=== PATIENT | male | born 1940 | race Caucasian/White ===

== ENCOUNTER 2017-08-22 15:52 | Inpatient (IN) | payer OTHER, MEDICARE ==
[~2017-08-22] VITALS: Ht 182.9 cm; Wt 117.9 kg
[2017-08-22 15:58] VITALS: BP_SYST 123
[2017-08-22] MEDS ORDERED: AMPICILLIN SODIUM/SULBACTAM NA 3 GM in NS 100 ML IV ONE (16:15)
[2017-08-22] MEDS ORDERED: ASPIRIN 81 MG TAB.CHEW PO ONE (16:15)
[2017-08-22] MEDS ORDERED: NACL 0.9% 1,000 ML IV ONE (16:30)
[2017-08-22 16:46] LABS: BASOPHILS % (AUTO) 0.6 % (0.0-2.0); EOSINOPHILS # (AUTO) 0.2 K/uL (0.0-0.4); EOSINOPHILS % (AUTO) 3.7 % (0.0-4.0); HEMATOCRIT 32.6 % (36-54); HEMOGLOBIN 11.2 g/dL (14.0-18.0); LYMPHOCYTES # (AUTO) 1.5 K/uL (1.0-5.5); LYMPHOCYTES % (AUTO) 25.7 % (20.5-51.5); MEAN CORPUSCULAR HEMOGLOBIN 35 pg (27-31); MEAN CORPUSCULAR HGB CONC 34 % (32-36); MEAN CORPUSCULAR VOLUME 101 fL (79.0-98.0); MONOCYTES # (AUTO) 0.6 K/uL (0.0-1.0); MONOCYTES % (AUTO) 9.4 % (1.7-9.3); NEUTROPHILS # (AUTO) 3.6 K/uL (1.8-7.7); NEUTROPHILS % (AUTO) 60.6 % (40.0-70.0); RED BLOOD CELL COUNT(AUTO) 3.24 MIL/uL (4.2-6.2); WHITE BLOOD COUNT (AUTO) 5.9 K/uL (4.8-10.8)
[2017-08-22 16:51] LABS: ANION GAP 5 (5-15); CHLORIDE 99 mmol/L (98-107); CREATININE 1.55 mg/dL (0.55-1.30); GLUCOSE 110 mg/dL (70-99); POTASSIUM 4.3 mmol/L (3.5-5.1); SODIUM SERUM 130 mmol/L (136-145); UREA NITROGEN, BLOOD 21 mg/dL (8-21)
[2017-08-22 16:53] LABS: INR 1.4 (0.80-1.20); PROTHROMBIN TIME 13.8 SECS (9.5-12.5)
[2017-08-22 16:56] LABS: ALANINE AMINOTRANSFERASE 23 U/L (12-78); ALBUMIN 2.1 g/dL (3.4-4.8); ASPARTATE AMINOTRANSFERASE 45 U/L (10-37); TOTAL BILIRUBIN 4.8 mg/dL (0.0-1.0)
[2017-08-22 17:00] LABS: PLATELET COUNT (AUTO) 112 K/uL (130-430)
[2017-08-22] MEDS ORDERED: AMPICILLIN SODIUM/SULBACTAM NA 3 GM VIAL ONE ×2 (17:07→17:42)
[2017-08-22] MEDS ORDERED: VITA100014 PO (17:59)
[2017-08-22] MEDS ORDERED: GABA-529 PO (17:59)
[2017-08-22] MEDS ORDERED: PROP10TA10 PO (17:59)
[2017-08-22] MEDS ORDERED: SPIR25TA4 PO (17:59)
[2017-08-22] MEDS ORDERED: URSO500T9 PO (17:59)
[2017-08-22] MEDS ORDERED: PRO40 PO (17:59)
[2017-08-22] MEDS ORDERED: DONE5TAB3 PO (17:59)
[2017-08-22] MEDS ORDERED: RIFA550T5 PO (17:59)
[2017-08-22] MEDS ORDERED: MULT-1198 PO (17:59)
[2017-08-22] MEDS ORDERED: LACT10SO66 PO (17:59)
[2017-08-22] MEDS ORDERED: DOXY100T2 PO (17:59)
[2017-08-22] MEDS ORDERED: FURO-149 PO (17:59)
[2017-08-22 18:22] VITALS: BP_SYST 110
[2017-08-22 20:00] VITALS: BP_SYST 112
[2017-08-22] MEDS ORDERED: DEXTROSE 50% JECT 50 ML DISP.SYRIN IVP PRN (20:00)
[2017-08-22] MEDS: DONEPEZIL HCL 5 MG TABLET (ARICEPT) PO SCH (21:11)
[2017-08-22] MEDS: LACTULOSE 20 GM/30 ML UDC PO SCH (21:12)
[2017-08-22] MEDS: DOXYCYCLINE HYCLATE 100 MG CAPSULE PO SCH (21:12)
[2017-08-22] MEDS: RIFAXIMIN 550 MG TABLET PO SCH (21:12)
[2017-08-22 23:41] LABS: BILIRUBIN,URINE 1+ (NEGATIVE); BLOOD, URINE 1+ (NEGATIVE); CLARITY/URINE CLEAR (CLEAR); COLOR,URINE YELLOW (YELLOW); GLUCOSE,URINE NEGATIVE (NEGATIVE); KETONES,URINE NEGATIVE (NEGATIVE); LEUKOCYTE ESTERASE ,URINE TRACE (NEGATIVE); NITRITE, URINE NEGATIVE (NEGATIVE); PROTEIN URINE NEGATIVE (NEGATIVE); UROBILINOGEN,URINE 0.2 (0.2-1.0)
[2017-08-22] MEDS ORDERED: AMPICILLIN SODIUM/SULBACTAM NA 1.5 GM VIAL ONE (23:52)
[2017-08-23] VITALS (7 sets, daily range): BP systolic 100–125
[2017-08-23 00:02] LABS: BACTERIA,URINE FEW /HPF (None Seen); CALCIUM OXALATE CRYSTALS,UR 0-10 /HPF (None Seen); RBC,URINE 0-3 /HPF (0-3)
[2017-08-23 00:03] LABS: MUCUS,URINE None Seen /LPF (None Seen)
[2017-08-23] MEDS: AMPICILLIN SODIUM/SULBACTAM NA 1.5 GM in NS 50 ML IV SCH ×4 (00:15→17:26)
[2017-08-23 06:31] LABS: BASOPHILS % (AUTO) 0.6 % (0.0-2.0); EOSINOPHILS # (AUTO) 0.2 K/uL (0.0-0.4); EOSINOPHILS % (AUTO) 4.5 % (0.0-4.0); HEMATOCRIT 30.1 % (36-54); HEMOGLOBIN 10.1 g/dL (14.0-18.0); LYMPHOCYTES # (AUTO) 1.4 K/uL (1.0-5.5); LYMPHOCYTES % (AUTO) 29.1 % (20.5-51.5); MEAN CORPUSCULAR HEMOGLOBIN 34 pg (27-31); MEAN CORPUSCULAR HGB CONC 34 % (32-36); MEAN CORPUSCULAR VOLUME 101 fL (79.0-98.0); MONOCYTES # (AUTO) 0.4 K/uL (0.0-1.0); MONOCYTES % (AUTO) 9.4 % (1.7-9.3); NEUTROPHILS # (AUTO) 2.7 K/uL (1.8-7.7); NEUTROPHILS % (AUTO) 56.4 % (40.0-70.0); PLATELET COUNT (AUTO) 74 K/uL (130-430); RED BLOOD CELL COUNT(AUTO) 2.97 MIL/uL (4.2-6.2); RED CELL DISTRIBUTION WIDTH 17.1 % (9.0-15.0); WHITE BLOOD COUNT (AUTO) 4.7 K/uL (4.8-10.8)
[2017-08-23 06:36] LABS: ALANINE AMINOTRANSFERASE 20 U/L (12-78); ANION GAP 5 (5-15); ASPARTATE AMINOTRANSFERASE 41 U/L (10-37); CALCIUM 8.8 mg/dL (8.4-11.0); CHLORIDE 100 mmol/L (98-107); CREATININE 1.53 mg/dL (0.55-1.30); GLUCOSE 112 mg/dL (70-99); POTASSIUM 4.5 mmol/L (3.5-5.1); SODIUM SERUM 133 mmol/L (136-145); TOTAL BILIRUBIN 4.1 mg/dL (0.0-1.0); UREA NITROGEN, BLOOD 20 mg/dL (8-21)
[2017-08-23] MEDS: RIFAXIMIN 550 MG TABLET PO SCH ×2 (08:48→20:58)
[2017-08-23] MEDS: GABAPENTIN 100 MG CAPSULE PO SCH (08:48)
[2017-08-23] MEDS: FUROSEMIDE 40 MG TABLET PO SCH (08:48)
[2017-08-23] MEDS: LACTULOSE 20 GM/30 ML UDC PO SCH ×2 (08:48→20:58)
[2017-08-23] MEDS: DOXYCYCLINE HYCLATE 100 MG CAPSULE PO SCH ×2 (08:48→20:58)
[2017-08-23] MEDS: PANTOPRAZOLE SODIUM 40 MG TAB PO SCH (08:49)
[2017-08-23] MEDS: PROPRANOLOL HCL 10 MG TABLET (INDERAL) PO SCH (08:49)
[2017-08-23] MEDS: SPIRONOLACTONE 25 MG TABLET (ALDACTONE) PO SCH (08:49)
[2017-08-23] MEDS ORDERED: *CUBICIN 4 MG/KG Q48H/PHARMACY XX PRN (11:30)
[2017-08-23] MEDS: INSULIN REGULAR, HUMAN 100 UNITS/ML, 10 ML VIAL (novoLIN R) SUBCUT PRN ×2 (11:33→17:04)
[2017-08-23] MEDS: DAPTOmycin 400 MG in NS 50 ML IV SCH (15:37)
[2017-08-23] MEDS: DONEPEZIL HCL 5 MG TABLET (ARICEPT) PO SCH (20:58)
[2017-08-24] VITALS (7 sets, daily range): BP systolic 105–128
[2017-08-24] MEDS: AMPICILLIN SODIUM/SULBACTAM NA 1.5 GM in NS 50 ML IV SCH ×4 (00:06→19:00)
[2017-08-24 06:09] LABS: HEPATITIS B SURFACE AG Negative (Negative); HEPATITIS C VIRUS AB 0.1 s/co ratio (0.0-0.9)
[2017-08-24 08:06] LABS: AFP, TUMOR MARKER 1.4 ng/mL (0.0-8.3)
[2017-08-24] MEDS: GABAPENTIN 100 MG CAPSULE PO SCH (08:15)
[2017-08-24] MEDS: LACTULOSE 20 GM/30 ML UDC PO SCH ×2 (08:15→21:10)
[2017-08-24] MEDS: SPIRONOLACTONE 25 MG TABLET (ALDACTONE) PO SCH (08:16)
[2017-08-24] MEDS: PROPRANOLOL HCL 10 MG TABLET (INDERAL) PO SCH (08:17)
[2017-08-24] MEDS: PANTOPRAZOLE SODIUM 40 MG TAB PO SCH (08:17)
[2017-08-24] MEDS: DOXYCYCLINE HYCLATE 100 MG CAPSULE PO SCH ×2 (08:17→21:10)
[2017-08-24] MEDS: FUROSEMIDE 40 MG TABLET PO SCH (08:17)
[2017-08-24] MEDS: RIFAXIMIN 550 MG TABLET PO SCH ×2 (08:17→21:10)
[2017-08-24] MEDS ORDERED: IPRATROPIUM BROM 0.5 MG/2.5 ML VIAL.NEB (ATROVENT) INH PRN (16:00)
[2017-08-24] MEDS ORDERED: ALBUTEROL SULFATE 0.083% 2.5 MG/3 ML VIAL.NEB INH PRN (16:00)
[2017-08-24] MEDS: ALBUTEROL SULFATE 0.083% 2.5 MG/3 ML VIAL.NEB INH SCH ×2 (19:51→23:00)
[2017-08-24] MEDS: IPRATROPIUM BROM 0.5 MG/2.5 ML VIAL.NEB (ATROVENT) INH SCH ×2 (19:52→23:00)
[2017-08-24] MEDS: DONEPEZIL HCL 5 MG TABLET (ARICEPT) PO SCH (21:10)
[2017-08-24] MEDS: ZOLPIDEM TARTRATE 5 MG TABLET PO PRN (21:10)
[2017-08-25] VITALS: BP_SYST 110
[2017-08-25] MEDS: AMPICILLIN SODIUM/SULBACTAM NA 1.5 GM in NS 50 ML IV SCH ×5 (00:46→23:24)
[2017-08-25 04:00] VITALS: BP_SYST 109
[2017-08-25 06:39] LABS: BASOPHILS % (AUTO) 0.6 % (0.0-2.0); EOSINOPHILS # (AUTO) 0.3 K/uL (0.0-0.4); EOSINOPHILS % (AUTO) 5.3 % (0.0-4.0); HEMATOCRIT 31.9 % (36-54); HEMOGLOBIN 10.7 g/dL (14.0-18.0); INR 1.3 (0.80-1.20); LYMPHOCYTES # (AUTO) 1.2 K/uL (1.0-5.5); LYMPHOCYTES % (AUTO) 25.5 % (20.5-51.5); MEAN CORPUSCULAR HEMOGLOBIN 34 pg (27-31); MEAN CORPUSCULAR HGB CONC 34 % (32-36); MEAN CORPUSCULAR VOLUME 102 fL (79.0-98.0); MONOCYTES # (AUTO) 0.4 K/uL (0.0-1.0); MONOCYTES % (AUTO) 8.2 % (1.7-9.3); NEUTROPHILS # (AUTO) 2.9 K/uL (1.8-7.7); NEUTROPHILS % (AUTO) 60.4 % (40.0-70.0); PLATELET COUNT (AUTO) 73 K/uL (130-430); PROTHROMBIN TIME 13.2 SECS (9.5-12.5); RED BLOOD CELL COUNT(AUTO) 3.12 MIL/uL (4.2-6.2); RED CELL DISTRIBUTION WIDTH 17.4 % (9.0-15.0); WHITE BLOOD COUNT (AUTO) 4.8 K/uL (4.8-10.8)
[2017-08-25] MEDS: IPRATROPIUM BROM 0.5 MG/2.5 ML VIAL.NEB (ATROVENT) INH SCH ×5 (07:30→23:00)
[2017-08-25] MEDS: ALBUTEROL SULFATE 0.083% 2.5 MG/3 ML VIAL.NEB INH SCH ×5 (07:30→23:00)
[2017-08-25 08:00] VITALS: BP_SYST 114
[2017-08-25] MEDS: RIFAXIMIN 550 MG TABLET PO SCH ×2 (08:50→21:30)
[2017-08-25] MEDS: FUROSEMIDE 40 MG TABLET PO SCH (08:50)
[2017-08-25] MEDS: SPIRONOLACTONE 25 MG TABLET (ALDACTONE) PO SCH (08:51)
[2017-08-25] MEDS: PANTOPRAZOLE SODIUM 40 MG TAB PO SCH (08:53)
[2017-08-25] MEDS: LACTULOSE 20 GM/30 ML UDC PO SCH ×2 (08:53→21:31)
[2017-08-25] MEDS: PROPRANOLOL HCL 10 MG TABLET (INDERAL) PO SCH (08:53)
[2017-08-25] MEDS: GABAPENTIN 100 MG CAPSULE PO SCH (08:53)
[2017-08-25] MEDS: DOXYCYCLINE HYCLATE 100 MG CAPSULE PO SCH ×2 (08:53→21:30)
[2017-08-25 12:02] VITALS: BP_SYST 116
[2017-08-25] MEDS: DAPTOmycin 400 MG in NS 50 ML IV SCH (15:27)
[2017-08-25 16:22] VITALS: BP_SYST 121
[2017-08-25] MEDS: ZOLPIDEM TARTRATE 5 MG TABLET PO PRN (21:30)
[2017-08-25] MEDS: DONEPEZIL HCL 5 MG TABLET (ARICEPT) PO SCH (21:30)
[2017-08-26 00:07] VITALS: BP_SYST 117
[2017-08-26] MEDS: ALBUTEROL SULFATE 0.083% 2.5 MG/3 ML VIAL.NEB INH SCH ×6 (03:00→23:22)
[2017-08-26 04:01] VITALS: BP_SYST 117
[2017-08-26] MEDS: IPRATROPIUM BROM 0.5 MG/2.5 ML VIAL.NEB (ATROVENT) INH SCH ×6 (04:29→23:22)
[2017-08-26] MEDS: AMPICILLIN SODIUM/SULBACTAM NA 1.5 GM in NS 50 ML IV SCH ×4 (05:18→23:25)
[2017-08-26 07:25] LABS: ALANINE AMINOTRANSFERASE 26 U/L (12-78); ANION GAP 4 (5-15); ASPARTATE AMINOTRANSFERASE 48 U/L (10-37); CHLORIDE 102 mmol/L (98-107); CREATININE 1.24 mg/dL (0.55-1.30); GLUCOSE 103 mg/dL (70-99); POTASSIUM 4.4 mmol/L (3.5-5.1); SODIUM SERUM 135 mmol/L (136-145); TOTAL BILIRUBIN 4.2 mg/dL (0.0-1.0); UREA NITROGEN, BLOOD 16 mg/dL (8-21)
[2017-08-26 08:11] VITALS: BP_SYST 110
[2017-08-26] MEDS: PROPRANOLOL HCL 10 MG TABLET (INDERAL) PO SCH (09:13)
[2017-08-26] MEDS: DOXYCYCLINE HYCLATE 100 MG CAPSULE PO SCH ×2 (09:13→21:35)
[2017-08-26] MEDS: PANTOPRAZOLE SODIUM 40 MG TAB PO SCH (09:13)
[2017-08-26] MEDS: GABAPENTIN 100 MG CAPSULE PO SCH (09:13)
[2017-08-26] MEDS: FUROSEMIDE 40 MG TABLET PO SCH (09:13)
[2017-08-26] MEDS: RIFAXIMIN 550 MG TABLET PO SCH ×2 (09:13→21:35)
[2017-08-26] MEDS: LACTULOSE 20 GM/30 ML UDC PO SCH ×2 (09:14→21:35)
[2017-08-26] MEDS: SPIRONOLACTONE 25 MG TABLET (ALDACTONE) PO SCH (09:14)
[2017-08-26 12:33] VITALS: BP_SYST 122
[2017-08-26 17:05] VITALS: BP_SYST 123
[2017-08-26 20:00] VITALS: BP_SYST 128
[2017-08-26] MEDS: ZOLPIDEM TARTRATE 5 MG TABLET PO PRN (21:35)
[2017-08-26] MEDS: DONEPEZIL HCL 5 MG TABLET (ARICEPT) PO SCH (21:35)
[2017-08-27 00:31] VITALS: BP_SYST 138
[2017-08-27 04:49] VITALS: BP_SYST 136
[2017-08-27] MEDS: AMPICILLIN SODIUM/SULBACTAM NA 1.5 GM in NS 50 ML IV SCH (06:00)
[2017-08-27] MEDS: ALBUTEROL SULFATE 0.083% 2.5 MG/3 ML VIAL.NEB INH SCH (07:59)
[2017-08-27] MEDS: IPRATROPIUM BROM 0.5 MG/2.5 ML VIAL.NEB (ATROVENT) INH SCH (07:59)
[2017-08-27 09:13] VITALS: BP_SYST 129
[2017-08-27] MEDS: PANTOPRAZOLE SODIUM 40 MG TAB PO SCH (09:15)
[2017-08-27] MEDS: RIFAXIMIN 550 MG TABLET PO SCH (09:15)
[2017-08-27] MEDS: PROPRANOLOL HCL 10 MG TABLET (INDERAL) PO SCH (09:15)
[2017-08-27] MEDS: DOXYCYCLINE HYCLATE 100 MG CAPSULE PO SCH (09:15)
[2017-08-27] MEDS: LACTULOSE 20 GM/30 ML UDC PO SCH (09:16)
[2017-08-27] MEDS: GABAPENTIN 100 MG CAPSULE PO SCH (09:16)
[2017-08-27] MEDS: FUROSEMIDE 40 MG TABLET PO SCH (09:16)
[2017-08-27] MEDS: SPIRONOLACTONE 25 MG TABLET (ALDACTONE) PO SCH (09:16)
[2017-08-27] MEDS ORDERED: DOXY100T2 PO (10:46)
[2017-08-27 11:15] VITALS: BP_SYST 129
[2017-08-27 11:35] VITALS: BP_SYST 121
== END 2017-08-27 11:44 | disposition home or self-care (01) | DRG 441 ==
LOC: SED 15:52 → SMU 17:34
PROVIDERS: ADMIT Internal Medicine Hospice and Palliative Medicine; ATTEND Internal Medicine Hospice and Palliative Medicine
PROC: 5A09457 Assistance with Respiratory Ventilation, 24-96 Consecutive Hours, Continuous Positive Airway Pressure (ICD-10-PCS; principal; 2017-08-22)
DX: K72.90 Hepatic failure, unspecified without coma (principal); J18.9 Pneumonia, unspecified organism; N17.9 Acute kidney failure, unspecified; L03.116 Cellulitis of left lower limb; D68.9 Coagulation defect, unspecified; D69.6 Thrombocytopenia, unspecified; E11.22 Type 2 diabetes mellitus with diabetic chronic kidney disease; R18.8 Other ascites; E11.9 Type 2 diabetes mellitus without complications; F03.90 Unspecified dementia, unspecified severity, without behavioral disturbance, psychotic disturbance, mood disturbance, and anxiety; K74.60 Unspecified cirrhosis of liver; E66.9 Obesity, unspecified; B18.2 Chronic viral hepatitis C; N18.9 Chronic kidney disease, unspecified; I12.9 Hypertensive chronic kidney disease with stage 1 through stage 4 chronic kidney disease, or unspecified chronic kidney disease; I89.0 Lymphedema, not elsewhere classified; Z96.652 Presence of left artificial knee joint; Z79.899 Other long term (current) drug therapy; Z68.35 Body mass index [BMI] 35.0-35.9, adult; Z90.49 Acquired absence of other specified parts of digestive tract
CPT/HCPCS: 36415; 71010; 76705; 80053; 81000-TC; 82105; 82140-TC; 82550-TC; 82962; 83036; 83605; 84484; 85025; 85610-TC; 85730-TC; 86803; 87040-TC; 87340; 93005; 94640; 94660; 94760; 96365; 97110-GP; 97116-GP; 97530-GP; 99285; J0295; J0878; J1815; J7030; J7040; J7050

== ENCOUNTER 2017-09-25 15:19 | Emergency (ER) | payer OTHER, MEDICARE ==
[~2017-09-25] VITALS: Ht 182.9 cm; Wt 121.1 kg
[~2017-09-25 15:19] MED LIST: DONE5TAB3 PO; DOXY100T2 PO; FURO-149 PO; GABA-529 PO; LACT10SO66 PO; MULT-1198 PO; PRO40 PO; PROP10TA10 PO; RIFA550T5 PO; SPIR25TA4 PO; URSO500T9 PO; VITA100014 PO
[2017-09-25 16:09] VITALS: BP_SYST 122
--- NOTE | 2017-09-25 19:38 | NUR ---
Patient to ER bed 5 to gown for evaluation. Side rails up. Report given by MATITE Villarreal to MATTIE Osullivan.
--- NOTE | 2017-09-25 19:40 | NUR ---
Patient AAOx4, ambulatory. Patient states having a main complaint of bilateral foot swelling for "a while" prior to ER visit; patient states he "saw his PMD and was prescribed Keflex" and has not had relief. Patient denies pain to bilateral feet, no signs of redness noted to bilateral feet. Patient denies any other complaints.
--- NOTE | 2017-09-25 19:52 | NUR ---
ER Dr. Bashir at bedside examining patient.
[2017-09-25] MEDS ORDERED: cefTRIAXone 1 GM VIAL IM ONE (20:30)
[2017-09-25] MEDS ORDERED: LIDOCAINE 1% 10 MG/ML, 20 ML MDV INJ ONE (20:30)
[2017-09-25] MEDS ORDERED: LIDOCAINE 1%, 20 ML MDV 20 ML ONE (20:30)
[2017-09-25 20:39] VITALS: BP_SYST 134
--- NOTE | 2017-09-25 20:39 | NUR ---
Patient given written and verbal discharge instructions and verbalizes understanding. ER MD discussed with patient the results and treatment provided. Patient in stable condition. ID arm band removed. Rx of keflex and bactrim given. Patient educated on pain management and to follow up with PMD. Pain Scale 0/10. Opportunity for questions provided and answered.
== END 2017-09-25 20:39 | disposition home or self-care (01) ==
LOC: SED 15:19
DX: L03.116 Cellulitis of left lower limb (principal); L03.115 Cellulitis of right lower limb; E11.9 Type 2 diabetes mellitus without complications; Z79.899 Other long term (current) drug therapy; Z96.659 Presence of unspecified artificial knee joint
CPT/HCPCS: 96372; 99283; J0696; J2001

== ENCOUNTER 2018-07-26 19:24 | Inpatient (IN) | payer OTHER, MEDICARE ==
[~2018-07-26] VITALS: Ht 182.9 cm; Wt 121.6 kg
[~2018-07-26 19:24] MED LIST changes: -SPIR25TA4 PO; +SPIR25TA6 PO
[2018-07-26 19:42] VITALS: BP_SYST 105
[2018-07-26] MEDS ORDERED: fentaNYL CITRATE/PF 100 MCG/2 ML AMP IVP ONE (20:15)
[2018-07-26 20:27] LABS: EOSINOPHILS # (AUTO) 0.3 K/uL (0.0-0.4); MEAN CORPUSCULAR HEMOGLOBIN 36 pg (27-31); MEAN CORPUSCULAR HGB CONC 34 % (32-36); MEAN CORPUSCULAR VOLUME 106 fL (79.0-98.0); MONOCYTES # (AUTO) 0.5 K/uL (0.0-1.0)
[2018-07-26 20:30] LABS: BASOPHILS % (AUTO) 0.7 % (0.0-2.0); EOSINOPHILS % (AUTO) 6.7 % (0.0-4.0); HEMATOCRIT 33.8 % (36-54); HEMOGLOBIN 11.4 g/dL (14.0-18.0); LYMPHOCYTES # (AUTO) 1.2 K/uL (1.0-5.5); LYMPHOCYTES % (AUTO) 23.2 % (20.5-51.5); MONOCYTES % (AUTO) 9.8 % (1.7-9.3); NEUTROPHILS % (AUTO) 59.6 % (40.0-70.0); RED BLOOD CELL COUNT(AUTO) 3.19 MIL/uL (4.2-6.2); RED CELL DISTRIBUTION WIDTH 17.2 % (9.0-15.0)
[2018-07-26 20:31] LABS: CALCIUM 9.9 mg/dL (8.4-11.0); CHLORIDE 102 mmol/L (98-107); GLUCOSE 110 mg/dL (70-99); POTASSIUM 5.2 mmol/L (3.5-5.1); SODIUM SERUM 135 mmol/L (136-145); UREA NITROGEN, BLOOD 33 mg/dL (8-21)
[2018-07-26] MEDS ORDERED: MIDO10TA PO (20:31)
[2018-07-26] MEDS ORDERED: VIT1TABL67 PO (20:31)
[2018-07-26] MEDS ORDERED: MELA3TAB PO (20:31)
[2018-07-26] MEDS ORDERED: SER25 PO (20:31)
[2018-07-26 20:32] LABS: CREATININE 1.64 mg/dL (0.55-1.30)
[2018-07-26 20:33] LABS: ANION GAP < 3 (5-15)
[2018-07-26 20:36] LABS: ALANINE AMINOTRANSFERASE 24 U/L (12-78); ALBUMIN 1.9 g/dL (3.4-4.8); ASPARTATE AMINOTRANSFERASE 48 U/L (10-37); INR 1.4 (0.80-1.20); PROTHROMBIN TIME 14.1 SECS (9.5-12.5); TOTAL BILIRUBIN 7.9 mg/dL (0.0-1.0)
[2018-07-26 20:46] LABS: PLATELET COUNT (AUTO) 82 K/uL (130-430)
[2018-07-26 21:44] LABS: BLOOD, URINE NEGATIVE (NEGATIVE); CLARITY/URINE CLEAR (CLEAR); COLOR,URINE YELLOW (YELLOW); GLUCOSE,URINE NEGATIVE (NEGATIVE); KETONES,URINE NEGATIVE (NEGATIVE); LEUKOCYTE ESTERASE ,URINE NEGATIVE (NEGATIVE); NITRITE, URINE NEGATIVE (NEGATIVE); PROTEIN URINE NEGATIVE (NEGATIVE)
[2018-07-26] MEDS ORDERED: LACTULOSE 20 GM/30 ML UDC PO ONE (21:45)
[2018-07-26] MEDS ORDERED: NACL 0.9% 3,500 ML IV ONE (21:45)
[2018-07-26 21:48] LABS: BILIRUBIN,URINE 1+ (NEGATIVE)
[2018-07-26] MEDS ORDERED: SODIUM POLYSTYRENE SULFONATE 15 GM/60 ML UDBTL PO ONE (22:00)
[2018-07-26] MEDS ORDERED: SODIUM POLYSTYRENE SULFONATE 15 GM/60 ML UDBTL ONE (22:04)
[2018-07-26] MEDS ORDERED: ONDANSETRON HCL 4 MG/2 ML VIAL IVP PRN (22:45)
[2018-07-26] MEDS ORDERED: MORPHINE 2 MG/ML INJ. SYRINGE IVP PRN (22:45)
[2018-07-26 23:01] VITALS: BP_SYST 101
[2018-07-27] VITALS: BP_SYST 101
[2018-07-27 06:21] LABS: BASOPHILS # (AUTO) 0.1 K/uL (0.0-0.2); BASOPHILS % (AUTO) 1.8 % (0.0-2.0); EOSINOPHILS # (AUTO) 0.3 K/uL (0.0-0.4); EOSINOPHILS % (AUTO) 5.9 % (0.0-4.0); HEMATOCRIT 32.7 % (36-54); HEMOGLOBIN 10.9 g/dL (14.0-18.0); LYMPHOCYTES # (AUTO) 1.1 K/uL (1.0-5.5); LYMPHOCYTES % (AUTO) 24.2 % (20.5-51.5); MEAN CORPUSCULAR HEMOGLOBIN 36 pg (27-31); MEAN CORPUSCULAR HGB CONC 34 % (32-36); MEAN CORPUSCULAR VOLUME 107 fL (79.0-98.0); MONOCYTES # (AUTO) 0.4 K/uL (0.0-1.0); MONOCYTES % (AUTO) 9.3 % (1.7-9.3); NEUTROPHILS # (AUTO) 2.5 K/uL (1.8-7.7); NEUTROPHILS % (AUTO) 58.8 % (40.0-70.0); PLATELET COUNT (AUTO) 76 K/uL (130-430); RED BLOOD CELL COUNT(AUTO) 3.06 MIL/uL (4.2-6.2); RED CELL DISTRIBUTION WIDTH 17.8 % (9.0-15.0)
[2018-07-27 06:44] LABS: ALANINE AMINOTRANSFERASE 22 U/L (12-78); ALBUMIN 1.8 g/dL (3.4-4.8); ANION GAP 7 (5-15); ASPARTATE AMINOTRANSFERASE 42 U/L (10-37); CALCIUM 9.4 mg/dL (8.4-11.0); CHLORIDE 105 mmol/L (98-107); CREATININE 1.59 mg/dL (0.55-1.30); GLUCOSE 104 mg/dL (70-99); POTASSIUM 3.9 mmol/L (3.5-5.1); SODIUM SERUM 139 mmol/L (136-145); TOTAL BILIRUBIN 7.4 mg/dL (0.0-1.0); UREA NITROGEN, BLOOD 30 mg/dL (8-21)
[2018-07-27 07:12] LABS: WHITE BLOOD COUNT (AUTO) 4.4 K/uL (4.8-10.8)
[2018-07-27 08:00] VITALS: BP_SYST 99
[2018-07-27] MEDS ORDERED: SODIUM POLYSTYRENE SULFONATE 15 GM/60 ML UDBTL ONE (09:42)
[2018-07-27 11:25] VITALS: BP_SYST 113
[2018-07-27] MEDS ORDERED: MAG-AL HYDROX/SIMETH 30 ML UDC PO PRN (11:45)
[2018-07-27] MEDS ORDERED: MAG-AL HYDROX/SIMETH 30 ML UDC PO ONE (14:41)
[2018-07-27 15:22] VITALS: BP_SYST 130
[2018-07-27] MEDS: FAMOTIDINE PF 20 MG/2 ML VIAL IVP SCH (15:42)
[2018-07-27] MEDS: QUEtiapine FUMARATE 25 MG TABLET PO SCH (17:53)
[2018-07-27 19:08] VITALS: BP_SYST 102
[2018-07-27] MEDS: URSODIOL 300 MG CAPSULE PO SCH (20:19)
[2018-07-27] MEDS: DONEPEZIL HCL 5 MG TABLET (ARICEPT) PO SCH (20:19)
[2018-07-27] MEDS: GABAPENTIN 300 MG CAPSULE PO SCH (20:20)
[2018-07-27] MEDS: LACTULOSE 20 GM/30 ML UDC PO SCH (20:20)
[2018-07-27] MEDS: RIFAXIMIN 550 MG TABLET PO SCH (20:22)
[2018-07-27] MEDS ORDERED: NON-FORMULARY MEDICATION (Ursodiol 1,000 MG) PO SCH (21:00)
[2018-07-28 00:44] VITALS: BP_SYST 110
[2018-07-28 07:49] LABS: ANION GAP 3 (5-15); CALCIUM 8.9 mg/dL (8.4-11.0); CHLORIDE 103 mmol/L (98-107); CREATININE 1.43 mg/dL (0.55-1.30); GLUCOSE 115 mg/dL (70-99); POTASSIUM 4.2 mmol/L (3.5-5.1); SODIUM SERUM 137 mmol/L (136-145); UREA NITROGEN, BLOOD 25 mg/dL (8-21)
[2018-07-28 07:59] LABS: ALANINE AMINOTRANSFERASE 20 U/L (12-78); ALBUMIN 1.6 g/dL (3.4-4.8); ASPARTATE AMINOTRANSFERASE 43 U/L (10-37); TOTAL BILIRUBIN 5.7 mg/dL (0.0-1.0)
[2018-07-28] MEDS: RIFAXIMIN 550 MG TABLET PO SCH ×2 (08:21→20:52)
[2018-07-28] MEDS: PANTOPRAZOLE SODIUM 40 MG TAB PO SCH (08:21)
[2018-07-28] MEDS: LACTULOSE 20 GM/30 ML UDC PO SCH ×2 (08:21→20:52)
[2018-07-28] MEDS: MIDODRINE HCL 5 MG TABLET (PROAMATINE) PO SCH (08:21)
[2018-07-28] MEDS: URSODIOL 300 MG CAPSULE PO SCH ×2 (08:22→20:53)
[2018-07-28] MEDS: GABAPENTIN 300 MG CAPSULE PO SCH ×2 (08:22→20:52)
[2018-07-28] MEDS: SPIRONOLACTONE 25 MG TABLET (ALDACTONE) PO SCH (08:22)
[2018-07-28 08:25] VITALS: BP_SYST 122
[2018-07-28 08:25] LABS: BASOPHILS # (AUTO) 0.1 K/uL (0.0-0.2); BASOPHILS % (AUTO) 1.5 % (0.0-2.0); EOSINOPHILS # (AUTO) 0.2 K/uL (0.0-0.4); EOSINOPHILS % (AUTO) 5.6 % (0.0-4.0); HEMATOCRIT 31.9 % (36-54); HEMOGLOBIN 10.5 g/dL (14.0-18.0); LYMPHOCYTES % (AUTO) 23.8 % (20.5-51.5); MEAN CORPUSCULAR HEMOGLOBIN 35 pg (27-31); MEAN CORPUSCULAR HGB CONC 33 % (32-36); MEAN CORPUSCULAR VOLUME 107 fL (79.0-98.0); MONOCYTES # (AUTO) 0.5 K/uL (0.0-1.0); MONOCYTES % (AUTO) 10.7 % (1.7-9.3); NEUTROPHILS # (AUTO) 2.5 K/uL (1.8-7.7); NEUTROPHILS % (AUTO) 58.4 % (40.0-70.0); PLATELET COUNT (AUTO) 74 K/uL (130-430); RED BLOOD CELL COUNT(AUTO) 2.98 MIL/uL (4.2-6.2); RED CELL DISTRIBUTION WIDTH 17.7 % (9.0-15.0); WHITE BLOOD COUNT (AUTO) 4.3 K/uL (4.8-10.8)
[2018-07-28] MEDS ORDERED: QUEtiapine FUMARATE 25 MG TABLET PO SCH (09:00)
[2018-07-28 11:52] VITALS: BP_SYST 106
[2018-07-28] MEDS: FAMOTIDINE PF 20 MG/2 ML VIAL IVP SCH (14:53)
[2018-07-28 16:09] VITALS: BP_SYST 110
[2018-07-28] MEDS: QUEtiapine FUMARATE 25 MG TABLET PO SCH (17:33)
[2018-07-28] MEDS: traMADol HCL HCL 50 MG TABLET (ULTRAM) PO PRN (17:33)
[2018-07-28] MEDS ORDERED: LACTULOSE 20 GM/30 ML UDC PO ONE (18:00)
[2018-07-28] MEDS: DONEPEZIL HCL 5 MG TABLET (ARICEPT) PO SCH (20:52)
[2018-07-28 21:02] VITALS: BP_SYST 123
[2018-07-28] MEDS ORDERED: DIPHENHYDRAMINE INJ 50 MG/ML VIAL IVP PRN (23:30)
[2018-07-29] VITALS: BP_SYST 122
[2018-07-29 07:08] LABS: BASOPHILS # (AUTO) 0.1 K/uL (0.0-0.2); BASOPHILS % (AUTO) 1.2 % (0.0-2.0); EOSINOPHILS # (AUTO) 0.2 K/uL (0.0-0.4); EOSINOPHILS % (AUTO) 4.3 % (0.0-4.0); HEMATOCRIT 31.6 % (36-54); HEMOGLOBIN 10.6 g/dL (14.0-18.0); LYMPHOCYTES # (AUTO) 1.2 K/uL (1.0-5.5); LYMPHOCYTES % (AUTO) 23.3 % (20.5-51.5); MEAN CORPUSCULAR HEMOGLOBIN 36 pg (27-31); MEAN CORPUSCULAR HGB CONC 34 % (32-36); MEAN CORPUSCULAR VOLUME 107 fL (79.0-98.0); MONOCYTES # (AUTO) 0.6 K/uL (0.0-1.0); MONOCYTES % (AUTO) 10.4 % (1.7-9.3); NEUTROPHILS # (AUTO) 3.2 K/uL (1.8-7.7); NEUTROPHILS % (AUTO) 60.8 % (40.0-70.0); RED BLOOD CELL COUNT(AUTO) 2.97 MIL/uL (4.2-6.2); RED CELL DISTRIBUTION WIDTH 17.4 % (9.0-15.0); WHITE BLOOD COUNT (AUTO) 5.3 K/uL (4.8-10.8)
[2018-07-29 07:28] LABS: ANION GAP 2 (5-15); CALCIUM 9.3 mg/dL (8.4-11.0); CHLORIDE 103 mmol/L (98-107); CREATININE 1.45 mg/dL (0.55-1.30); GLUCOSE 94 mg/dL (70-99); POTASSIUM 5.3 mmol/L (3.5-5.1); SODIUM SERUM 136 mmol/L (136-145); UREA NITROGEN, BLOOD 25 mg/dL (8-21)
[2018-07-29 07:37] LABS: ALANINE AMINOTRANSFERASE 20 U/L (12-78); ALBUMIN 1.7 g/dL (3.4-4.8); ASPARTATE AMINOTRANSFERASE 46 U/L (10-37); TOTAL BILIRUBIN 6.3 mg/dL (0.0-1.0)
[2018-07-29 08:00] VITALS: BP_SYST 124
[2018-07-29] MEDS: LACTULOSE 20 GM/30 ML UDC PO SCH ×3 (08:42→21:00)
[2018-07-29] MEDS: GABAPENTIN 300 MG CAPSULE PO SCH ×2 (08:43→20:05)
[2018-07-29] MEDS: SPIRONOLACTONE 25 MG TABLET (ALDACTONE) PO SCH (08:43)
[2018-07-29] MEDS: PANTOPRAZOLE SODIUM 40 MG TAB PO SCH (08:44)
[2018-07-29] MEDS: RIFAXIMIN 550 MG TABLET PO SCH ×2 (08:44→20:05)
[2018-07-29] MEDS: MIDODRINE HCL 5 MG TABLET (PROAMATINE) PO SCH (08:44)
[2018-07-29] MEDS: URSODIOL 300 MG CAPSULE PO SCH ×2 (08:48→20:06)
[2018-07-29] MEDS ORDERED: SODIUM POLYSTYRENE SULFONATE 15 GM/60 ML UDBTL PO ONE (09:30)
[2018-07-29 10:08] LABS: PLATELET COUNT (AUTO) 67 K/uL (130-430)
[2018-07-29 12:50] VITALS: BP_SYST 120
[2018-07-29 14:39] LABS: ANION GAP 3 (5-15); CALCIUM 9.4 mg/dL (8.4-11.0); CHLORIDE 100 mmol/L (98-107); CREATININE 1.31 mg/dL (0.55-1.30); GLUCOSE 138 mg/dL (70-99); POTASSIUM 4.4 mmol/L (3.5-5.1); UREA NITROGEN, BLOOD 24 mg/dL (8-21)
[2018-07-29 14:43] LABS: SODIUM SERUM 131 mmol/L (136-145)
[2018-07-29] MEDS ORDERED: LACTULOSE 20 GM/30 ML UDC PO ONE (15:00)
[2018-07-29] MEDS: FAMOTIDINE PF 20 MG/2 ML VIAL IVP SCH (15:53)
[2018-07-29 16:33] VITALS: BP_SYST 115
[2018-07-29] MEDS: QUEtiapine FUMARATE 25 MG TABLET PO SCH (18:43)
[2018-07-29 19:10] VITALS: BP_SYST 120
[2018-07-29] MEDS: DONEPEZIL HCL 5 MG TABLET (ARICEPT) PO SCH (20:05)
[2018-07-29] MEDS: FUROSEMIDE 20 MG TABLET PO SCH (22:47)
[2018-07-30 01:41] VITALS: BP_SYST 110
[2018-07-30 06:56] LABS: BASOPHILS # (AUTO) 0.1 K/uL (0.0-0.2); BASOPHILS % (AUTO) 2.2 % (0.0-2.0); EOSINOPHILS # (AUTO) 0.3 K/uL (0.0-0.4); EOSINOPHILS % (AUTO) 5.7 % (0.0-4.0); HEMATOCRIT 32.3 % (36-54); HEMOGLOBIN 10.6 g/dL (14.0-18.0); LYMPHOCYTES % (AUTO) 19.4 % (20.5-51.5); MEAN CORPUSCULAR HEMOGLOBIN 35 pg (27-31); MEAN CORPUSCULAR HGB CONC 33 % (32-36); MEAN CORPUSCULAR VOLUME 107 fL (79.0-98.0); MONOCYTES # (AUTO) 0.5 K/uL (0.0-1.0); MONOCYTES % (AUTO) 10.7 % (1.7-9.3); NEUTROPHILS # (AUTO) 3.1 K/uL (1.8-7.7); PLATELET COUNT (AUTO) 75 K/uL (130-430); RED BLOOD CELL COUNT(AUTO) 3.02 MIL/uL (4.2-6.2); RED CELL DISTRIBUTION WIDTH 16.8 % (9.0-15.0)
[2018-07-30 07:00] LABS: ALANINE AMINOTRANSFERASE 19 U/L (12-78); ALBUMIN 1.5 g/dL (3.4-4.8); ANION GAP 4 (5-15); ASPARTATE AMINOTRANSFERASE 42 U/L (10-37); CALCIUM 9.5 mg/dL (8.4-11.0); CHLORIDE 100 mmol/L (98-107); CREATININE 1.32 mg/dL (0.55-1.30); GLUCOSE 117 mg/dL (70-99); POTASSIUM 4.6 mmol/L (3.5-5.1); SODIUM SERUM 133 mmol/L (136-145); TOTAL BILIRUBIN 6.9 mg/dL (0.0-1.0); UREA NITROGEN, BLOOD 23 mg/dL (8-21)
[2018-07-30 08:17] VITALS: BP_SYST 113
[2018-07-30] MEDS: LACTULOSE 20 GM/30 ML UDC PO SCH ×3 (08:53→20:46)
[2018-07-30] MEDS: RIFAXIMIN 550 MG TABLET PO SCH ×2 (08:53→20:46)
[2018-07-30] MEDS: PANTOPRAZOLE SODIUM 40 MG TAB PO SCH (08:54)
[2018-07-30] MEDS: URSODIOL 300 MG CAPSULE PO SCH ×2 (08:54→20:48)
[2018-07-30] MEDS: MIDODRINE HCL 5 MG TABLET (PROAMATINE) PO SCH (08:54)
[2018-07-30] MEDS: FUROSEMIDE 20 MG TABLET PO SCH ×2 (08:54→20:46)
[2018-07-30 12:02] VITALS: BP_SYST 134
[2018-07-30] MEDS ORDERED: LACTULOSE 20 GM/30 ML UDC PO ONE (13:30)
[2018-07-30 16:02] VITALS: BP_SYST 136
[2018-07-30 20:00] VITALS: BP_SYST 112
[2018-07-30] MEDS: DONEPEZIL HCL 5 MG TABLET (ARICEPT) PO SCH (20:46)
[2018-07-30] MEDS: traMADol HCL HCL 50 MG TABLET (ULTRAM) PO PRN (21:19)
[2018-07-31 00:25] VITALS: BP_SYST 114
[2018-07-31 07:07] LABS: BASOPHILS # (AUTO) 0.1 K/uL (0.0-0.2); EOSINOPHILS # (AUTO) 0.3 K/uL (0.0-0.4); EOSINOPHILS % (AUTO) 5.7 % (0.0-4.0); HEMATOCRIT 30.7 % (36-54); HEMOGLOBIN 10.7 g/dL (14.0-18.0); LYMPHOCYTES % (AUTO) 19.3 % (20.5-51.5); MEAN CORPUSCULAR HEMOGLOBIN 36 pg (27-31); MEAN CORPUSCULAR HGB CONC 35 % (32-36); MEAN CORPUSCULAR VOLUME 105 fL (79.0-98.0); MONOCYTES # (AUTO) 0.5 K/uL (0.0-1.0); MONOCYTES % (AUTO) 9.1 % (1.7-9.3); NEUTROPHILS # (AUTO) 3.5 K/uL (1.8-7.7); NEUTROPHILS % (AUTO) 64.9 % (40.0-70.0); PLATELET COUNT (AUTO) 72 K/uL (130-430); RED BLOOD CELL COUNT(AUTO) 2.94 MIL/uL (4.2-6.2); RED CELL DISTRIBUTION WIDTH 16.9 % (9.0-15.0); WHITE BLOOD COUNT (AUTO) 5.4 K/uL (4.8-10.8)
[2018-07-31 07:34] LABS: CHLORIDE 101 mmol/L (98-107); POTASSIUM 4.5 mmol/L (3.5-5.1); SODIUM SERUM 133 mmol/L (136-145)
[2018-07-31 07:35] LABS: ALANINE AMINOTRANSFERASE 22 U/L (12-78); ALBUMIN 1.6 g/dL (3.4-4.8); ANION GAP 2 (5-15); ASPARTATE AMINOTRANSFERASE 43 U/L (10-37); CALCIUM 9.5 mg/dL (8.4-11.0); CREATININE 1.26 mg/dL (0.55-1.30); GLUCOSE 109 mg/dL (70-99); TOTAL BILIRUBIN 6.8 mg/dL (0.0-1.0); UREA NITROGEN, BLOOD 21 mg/dL (8-21)
[2018-07-31 08:00] VITALS: BP_SYST 123
[2018-07-31] MEDS: PANTOPRAZOLE SODIUM 40 MG TAB PO SCH (10:01)
[2018-07-31] MEDS: MIDODRINE HCL 5 MG TABLET (PROAMATINE) PO SCH (10:01)
[2018-07-31] MEDS: RIFAXIMIN 550 MG TABLET PO SCH (10:02)
[2018-07-31] MEDS: LACTULOSE 20 GM/30 ML UDC PO SCH (10:02)
[2018-07-31] MEDS: FUROSEMIDE 20 MG TABLET PO SCH (10:02)
[2018-07-31] MEDS: URSODIOL 300 MG CAPSULE PO SCH (10:03)
[2018-07-31 12:02] VITALS: BP_SYST 120
[2018-07-31 14:17] VITALS: BP_SYST 120
== END 2018-07-31 16:00 | DRG 441 ==
LOC: SED 19:24 → STU 22:33
PROVIDERS: ADMIT Internal Medicine; ATTEND Internal Medicine
DX: K72.90 Hepatic failure, unspecified without coma (principal); E43 Unspecified severe protein-calorie malnutrition; D61.818 Other pancytopenia; D68.9 Coagulation defect, unspecified; R18.8 Other ascites; E66.9 Obesity, unspecified; T14.8XXA Other injury of unspecified body region, initial encounter; K29.80 Duodenitis without bleeding; E87.5 Hyperkalemia; D69.6 Thrombocytopenia, unspecified; E66.01 Morbid (severe) obesity due to excess calories; F02.80 Dementia in other diseases classified elsewhere, unspecified severity, without behavioral disturbance, psychotic disturbance, mood disturbance, and anxiety; G31.83 Neurocognitive disorder with Lewy bodies; M19.90 Unspecified osteoarthritis, unspecified site; W17.89XA Other fall from one level to another, initial encounter; I77.6 Arteritis, unspecified; N18.9 Chronic kidney disease, unspecified; K74.60 Unspecified cirrhosis of liver; D63.8 Anemia in other chronic diseases classified elsewhere; I95.1 Orthostatic hypotension; Z90.49 Acquired absence of other specified parts of digestive tract; Y93.89 Activity, other specified; Y92.098 Other place in other non-institutional residence as the place of occurrence of the external cause; Y99.8 Other external cause status; Z79.899 Other long term (current) drug therapy; Z90.79 Acquired absence of other genital organ(s)
CPT/HCPCS: 36415; 71045; 72131; 80048; 80053; 81003; 82140-TC; 82962; 83605; 83735-TC; 83880; 84484; 85025; 85610-TC; 85730-TC; 87040-TC; 87086; 93005; 96374; 97110-GP; 97116-GP; 97530-GP; 99285; J1200; J2270; J3010; J3490

== ENCOUNTER 2018-08-12 09:30 | Inpatient (IN) | payer OTHER, MEDICARE ==
[~2018-08-12] VITALS: Ht 182.9 cm; Wt 121.6 kg
[2018-08-12 09:30] VITALS: BP_SYST 129
[~2018-08-12 09:30] MED LIST changes: -DOXY100T2 PO; +MELA3TAB PO; +MIDO10TA PO; -PROP10TA10 PO; +SER25 PO; +VIT1TABL67 PO; -VITA100014 PO
--- NOTE | 2018-08-12 09:30 | NUR ---
Assisted out of car with wheelchair. Placed in room 02. Placed on cardiac cath lab technologist, blood pressure machine and pulse oximeter. To gown for exam. Side rails up. Report given to Justice PHELPS & Jair PHELPS.
--- NOTE | 2018-08-12 09:40 | NUR ---
Pt was brought in by family C/O lower back and hip pain, increased abdominal swelling, and impaired gait x 3 days. Family is concerned bc the it has been harder for the pt to ambulate and can no longer get up to use the restroom.
--- NOTE | 2018-08-12 09:45 | NUR ---
ER Dr. Alvarado at bedside examining patient.
--- NOTE | 2018-08-12 09:56 | NUR ---
# 20 gauge angiocath placed to LAC. Use of asceptic technique. Opsite placed over site. Blood return noted. Blood for lab drawn from site. Flushed with 10 cc of normal saline. No evidence of infiltration noted. Patient tolerated well.
[2018-08-12 10:13] LABS: BASOPHILS # (AUTO) 0.1 K/uL (0.0-0.2); BASOPHILS % (AUTO) 1.1 % (0.0-2.0); EOSINOPHILS # (AUTO) 0.4 K/uL (0.0-0.4); EOSINOPHILS % (AUTO) 5.3 % (0.0-4.0); HEMATOCRIT 33.9 % (36-54); HEMOGLOBIN 11.6 g/dL (14.0-18.0); LYMPHOCYTES # (AUTO) 0.9 K/uL (1.0-5.5); LYMPHOCYTES % (AUTO) 10.7 % (20.5-51.5); MEAN CORPUSCULAR HEMOGLOBIN 36 pg (27-31); MEAN CORPUSCULAR HGB CONC 34 % (32-36); MEAN CORPUSCULAR VOLUME 105 fL (79.0-98.0); MONOCYTES # (AUTO) 0.6 K/uL (0.0-1.0); MONOCYTES % (AUTO) 6.9 % (1.7-9.3); NEUTROPHILS # (AUTO) 6.2 K/uL (1.8-7.7); PLATELET COUNT (AUTO) 121 K/uL (130-430); RED BLOOD CELL COUNT(AUTO) 3.22 MIL/uL (4.2-6.2); RED CELL DISTRIBUTION WIDTH 16.4 % (9.0-15.0); WHITE BLOOD COUNT (AUTO) 8.2 K/uL (4.8-10.8)
--- NOTE | 2018-08-12 10:15 | NUR ---
Medication reconciliation completed with information provided by pt. Any prior medication reconciliation on file was reviewed and corrected.
[2018-08-12 10:22] LABS: ANION GAP 5 (5-15); CALCIUM 9.4 mg/dL (8.4-11.0); CHLORIDE 93 mmol/L (98-107); CREATININE 1.67 mg/dL (0.55-1.30); GLUCOSE 121 mg/dL (70-99); POTASSIUM 4.9 mmol/L (3.5-5.1); SODIUM SERUM 124 mmol/L (136-145); UREA NITROGEN, BLOOD 36 mg/dL (8-21)
[2018-08-12 10:27] LABS: ALANINE AMINOTRANSFERASE 24 U/L (12-78); ALBUMIN 1.6 g/dL (3.4-4.8); ASPARTATE AMINOTRANSFERASE 45 U/L (10-37); INR 1.6 (0.80-1.20); PROTHROMBIN TIME 15.6 SECS (9.5-12.5); TOTAL BILIRUBIN 9.2 mg/dL (0.0-1.0)
--- NOTE | 2018-08-12 10:58 | NUR ---
Pt resting quietly, no acute distress noted. Will continue to monitor.
[2018-08-12] MEDS ORDERED: LACTULOSE 20 GM/30 ML UDC PO ONE (11:30)
[2018-08-12] MEDS ORDERED: MORPHINE 4 MG/ML INJ. SYRINGE IVP ONE (11:30)
--- NOTE | 2018-08-12 11:30 | NUR ---
Pt is resting in bed quietly, pain is 10/10. Will continue to monitor
--- NOTE | 2018-08-12 12:00 | NUR ---
Patient will be admitted to care of Dr. Hong. Admitted to telemetry unit. Will go to room 104B. Belongings list completed. Summary report printed. Report will be given at bedside.
--- NOTE | 2018-08-12 12:00 | NUR ---
ADMISSION NOTE Received patient from ER via monik, received report from CHE PHELPS. Patient admitted with diagnosis of ALTERED LEVEL OF CONCIOUSNESS. Patient oriented to hospital routine, call light, toileting and safety-patient verbalized understanding.
[2018-08-12 12:15] VITALS: BP_SYST 95
--- NOTE | 2018-08-12 13:25 | NUR ---
Note Rec'd report from admit MATTIE Rossi at 1245pm for continuation of care. Pt drowsy and sleepy from Morphine IVP given in ED. Admission assessment completed at this time. Dr Hong on the floor at this time. Pt's 4 family members at this time. Questions/concerns were answered at this time. No needs noted at this time. Call light within reach. Tele unit attached on admission to floor.
[2018-08-12] MEDS ORDERED: FUROSEMIDE 100 MG in D5W 90 ML IV SCH (14:00)
[2018-08-12] MEDS ORDERED: ONDANSETRON HCL 4 MG/2 ML VIAL IVP PRN (14:15)
[2018-08-12] MEDS ORDERED: NON-FORMULARY MEDICATION (Ursodiol 1,000 MG) PO SCH (14:15)
[2018-08-12 14:55] LABS: BILIRUBIN,URINE 2+ (NEGATIVE); BLOOD, URINE NEGATIVE (NEGATIVE); CLARITY/URINE CLEAR (CLEAR); COLOR,URINE AMBER (YELLOW); GLUCOSE,URINE NEGATIVE (NEGATIVE); KETONES,URINE NEGATIVE (NEGATIVE); LEUKOCYTE ESTERASE ,URINE NEGATIVE (NEGATIVE); NITRITE, URINE NEGATIVE (NEGATIVE); PH,URINE 5.5 (5.0-8.0); PROTEIN URINE NEGATIVE (NEGATIVE)
[2018-08-12] MEDS ORDERED: NEOMYCIN SULFATE 500 MG TABLET PO ONE (15:00)
[2018-08-12] MEDS ORDERED: RIFAXIMIN 550 MG TABLET PO ONE (15:00)
[2018-08-12] MEDS ORDERED: LEVOFLOXACIN 500 MG/D5W 100 ML IV ONE (15:00)
[2018-08-12] MEDS: MIDODRINE HCL 5 MG TABLET (PROAMATINE) PO SCH ×2 (15:05→20:59)
[2018-08-12 15:06] LABS: BACTERIA,URINE FEW /HPF (None Seen); CALCIUM OXALATE CRYSTALS,UR 0-10 /HPF (None Seen); MUCUS,URINE None Seen /LPF (None Seen); RBC,URINE 0-3 /HPF (0-3); WBC,URINE 0-3 /HPF (0-3)
[2018-08-12 16:00] VITALS: BP_SYST 119
[2018-08-12] MEDS ORDERED: cefTRIAXone 1 GM in D5W 50 ML IV ONE (16:00)
--- NOTE | 2018-08-12 16:25 | NUR ---
Note Pt drowsy - in and out of sleep. Charlton catheter was inserted and large amount of output came out (600cc). Pt tolerated insertion. IVPB and Lasix drip infusing at this time through left AC IV site. No needs noted at this time. No SOB/resp distress or pain/discomfort was noted. Pt was given hygiene care and lower extremities were elevated on pillows. Call light within reach. Pt next to nurses' station all shift.
[2018-08-12] MEDS: NEOMYCIN SULFATE 500 MG TABLET PO SCH (17:36)
[2018-08-12] MEDS: LACTULOSE 20 GM/30 ML UDC PO SCH ×2 (17:36→21:01)
[2018-08-12] MEDS: QUEtiapine FUMARATE 25 MG TABLET PO SCH (17:37)
--- NOTE | 2018-08-12 18:15 | NUR ---
Note Pt sitting up in bed to eat his dinner. No SOB/resp distress or pain/discomfort noted at this time. Pt is confused - seeing things in "the room that do not exist". Pt was oriented to room and nursing routines and procedures again. Pt's tele unit attached and intact all shift. Pt was checked on q1' and PRN all shift for needs and care. Charlton catheter intact and draining. Pt's IV in left AC intact and patent infusing IVF's. Pt sometimes forgets and bends arm on left and IVF's stops. No needs noted at this time. Call light within reach.
--- NOTE | 2018-08-12 19:00 | NUR ---
NOTE Dr Hong stated pt does need DVT prophylaxis as INR and Platelets numbers are high at this time.
[2018-08-12 20:00] VITALS: BP_SYST 151
--- NOTE | 2018-08-12 20:00 | NUR ---
Opening notes Pt alert, awake, confused. No acute distress noted. SB on the monitor HR 55. Lasix IV drip at 5ml/hr infusing as ordered L. AC 20G no s/s infiltration noted. Amrik legs swelling and erythema noted elevated on pillows. R. arm dressing intact. Charlton cath to gravity secured and intact noted with prosper urine. Bed low, locked, bed alarm on. Call light within reach. Will continue to monitor.
--- NOTE | 2018-08-12 20:19 | NUR ---
Consent signed Pt's son Eder at bedside and signed consent for Ultrasound paracentesis for tomorrow.
[2018-08-12] MEDS: RIFAXIMIN 550 MG TABLET PO SCH (20:59)
[2018-08-12] MEDS: DONEPEZIL HCL 5 MG TABLET (ARICEPT) PO SCH (21:00)
[2018-08-12] MEDS: PANTOPRAZOLE SODIUM 40 MG TAB PO SCH (21:01)
--- NOTE | 2018-08-12 21:30 | NUR ---
Wound care Pt alert, awake, confused. Photo right arm skin tears taken. Cleansed with NS and new Optifoam placed. Pt tolerated well. Photo of amrik leg redness and edema taken. Amrik legs maintained elevated on pillows. Call light within reach. Bed alarm on. To monitor.
--- NOTE | 2018-08-13 00:30 | NUR ---
Rounds Pt awake, confused, pt requesting wheelchair. VSS. Re-oriented pt to surrounding. IV Lasix continuous drip at 5ml/hr no s/s infiltration noted. Call light within reach. NPO after midnight. Bed low, locked, alarm on. Will continue to monitor.
[2018-08-13] MEDS: NEOMYCIN SULFATE 500 MG TABLET PO SCH ×4 (00:33→17:13)
[2018-08-13 01:00] VITALS: BP_SYST 123
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
--- NOTE | 2018-08-13 05:15 | NUR ---
Rounds/Pericare Pt awake. Pericare provided. Z-guard applied to redness on sacral region. No BM noted. Pt repositioned. Amrik legs maintainted elevated on pillows. IV lasix drip infusing as ordered 5ml/hr. Call light within reach. Bed low, locked, alarm on. To monitor. Addendum: 08/13/18 at 0528 by Terrie Hyatt RN Charlton cath to gravity, emptied 1600ml prosper urine.
--- NOTE | 2018-08-13 06:30 | NUR ---
Closing notes Pt awake, calm. No s/s distress noted. Continuous Lasix drip at 5ml/hr L. AC 20G no s/s infiltration noted. Charlton cath to gravity secure and intact. Amrik legs maintained floated on pillows. Bed low, locked, bed alarm on. Call light within easy reach. Needs met throughout the shift. To endorse to AM nurse.
[2018-08-13 06:51] LABS: BASOPHILS # (AUTO) 0.1 K/uL (0.0-0.2); BASOPHILS % (AUTO) 1.4 % (0.0-2.0); EOSINOPHILS # (AUTO) 0.4 K/uL (0.0-0.4); EOSINOPHILS % (AUTO) 7.1 % (0.0-4.0); HEMATOCRIT 34.5 % (36-54); HEMOGLOBIN 11.3 g/dL (14.0-18.0); LYMPHOCYTES # (AUTO) 0.8 K/uL (1.0-5.5); LYMPHOCYTES % (AUTO) 13.6 % (20.5-51.5); MEAN CORPUSCULAR HEMOGLOBIN 34 pg (27-31); MEAN CORPUSCULAR HGB CONC 33 % (32-36); MEAN CORPUSCULAR VOLUME 105 fL (79.0-98.0); MONOCYTES # (AUTO) 0.5 K/uL (0.0-1.0); MONOCYTES % (AUTO) 8.2 % (1.7-9.3); NEUTROPHILS # (AUTO) 4.4 K/uL (1.8-7.7); NEUTROPHILS % (AUTO) 69.7 % (40.0-70.0); PLATELET COUNT (AUTO) 93 K/uL (130-430); RED BLOOD CELL COUNT(AUTO) 3.29 MIL/uL (4.2-6.2); RED CELL DISTRIBUTION WIDTH 16.2 % (9.0-15.0); WHITE BLOOD COUNT (AUTO) 6.2 K/uL (4.8-10.8)
[2018-08-13 07:26] LABS: ALANINE AMINOTRANSFERASE 22 U/L (12-78); ALBUMIN 1.5 g/dL (3.4-4.8); ANION GAP 4 (5-15); ASPARTATE AMINOTRANSFERASE 44 U/L (10-37); CALCIUM 9.1 mg/dL (8.4-11.0); CHLORIDE 95 mmol/L (98-107); CREATININE 1.49 mg/dL (0.55-1.30); GLUCOSE 95 mg/dL (70-99); PHOSPHORUS 3.2 mg/dL (2.7-4.5); POTASSIUM 4.7 mmol/L (3.5-5.1); SODIUM SERUM 127 mmol/L (136-145); TOTAL BILIRUBIN 10.6 mg/dL (0.0-1.0); UREA NITROGEN, BLOOD 37 mg/dL (8-21)
--- NOTE | 2018-08-13 07:33 | NUR ---
Opening Note: Patient laying in bed resting. Patient denies pain and discomfort. Breathing is even and unlabored with no distress noted. IV patent and intact with no signs of infiltration. Charlton catheter patent and intact with visible urine output. Safety precautions in place; bed in lowest position, wheels locked, side rails x3, bed alarm activated and call light within reach. No needs at this time. Will continue to monitor.
[2018-08-13 08:01] VITALS: BP_SYST 110
[2018-08-13] MEDS: PANTOPRAZOLE SODIUM 40 MG TAB PO SCH ×2 (08:24→21:29)
[2018-08-13] MEDS: MIDODRINE HCL 5 MG TABLET (PROAMATINE) PO SCH ×3 (08:24→21:29)
[2018-08-13] MEDS: URSODIOL 300 MG CAPSULE PO SCH ×2 (08:24→21:32)
[2018-08-13] MEDS: cefTRIAXone 1 GM in D5W 50 ML IV SCH (08:24)
[2018-08-13] MEDS: RIFAXIMIN 550 MG TABLET PO SCH ×2 (08:24→21:29)
[2018-08-13] MEDS: LACTULOSE 20 GM/30 ML UDC PO SCH ×4 (08:25→21:30)
[2018-08-13] MEDS ORDERED: PANTOPRAZOLE SODIUM 40 MG TAB PO SCH (09:00)
[2018-08-13] MEDS ORDERED: NON-FORMULARY MEDICATION (Vit D3 & K/Berberine Hcl/Hops (Ostera Tablet) 1 EACH) PO SCH (09:00)
[2018-08-13] MEDS ORDERED: ALBUMIN HUMAN 25% 200 ML IV ONE (10:00)
--- NOTE | 2018-08-13 10:02 | NUR ---
Rounds: Patient in bed resting, no distress noted. Will continue to monitor.
--- NOTE | 2018-08-13 10:22 | NUR ---
GI consult called: for Dr. Cifuentes (Dr. Velez environmental remediation specialist), regarding liver failure, ordered by Dr. Hong, spoke with Kristal.
[2018-08-13] MEDS: FUROSEMIDE 100 MG in D5W 90 ML IV SCH (11:04)
--- NOTE | 2018-08-13 12:00 | NUR ---
Rounds: Patient laying in bed resting, at bedside. Patient repositioned for comfort. Patient denies pain and discomfort. Breathing is even and unlabored with no distress noted. Morning medications tolerated well. Safety precautions in place and call light within reach. Will continue to monitor.
[2018-08-13 12:11] VITALS: BP_SYST 120
[2018-08-13] MEDS ORDERED: FUROSEMIDE 20 MG TABLET PO SCH (13:00)
--- NOTE | 2018-08-13 14:01 | NUR ---
Rounds: Patient in bed resting, no distress noted. Repositioned for comfort. Safety and fall precautions in place. No needs at this time. Will continue to monitor.
--- NOTE | 2018-08-13 16:00 | NUR ---
Rounds: Patient laying in bed resting. Patient repositioned for comfort. Patient denies pain and discomfort. Breathing is even and unlabored with no distress noted. IV infusing with no signs of infiltration. Safety precautions in place and call light within reach. No needs at this time. Will continue to monitor.
[2018-08-13 16:03] VITALS: BP_SYST 132
[2018-08-13] MEDS: QUEtiapine FUMARATE 25 MG TABLET PO SCH (17:13)
--- NOTE | 2018-08-13 18:20 | NUR ---
IV RE-INSERTION: Patient removed IV. Restarted on right wrist 22g. Successful after 1 attempts. Will observe for any signs of infiltration.
--- NOTE | 2018-08-13 18:43 | NUR ---
Closing Note: Patient laying in bed resting. Patient denies pain and discomfort. Breathing is even and unlabored with no distress noted. IV patent and intact with no signs of infiltration. Charlton catheter patent and intact with visible urine output. Safety precautions in place; bed in lowest position, wheels locked, side rails x3, bed alarm activated and call light within reach. All needs met. Will endorse plan of care to NOC, nurse.
--- NOTE | 2018-08-13 19:05 | NUR ---
RECEIVED BEDSIDE REPORT FROM CHUY TINSLEY. PATIENT IN BED RESTING QUITELY.
--- NOTE | 2018-08-13 20:00 | NUR ---
INITIAL NOTES: PATIENT AWAKE ORIENTED X2. KNOWS FULL NAME AND PLACE. STATED HIS DATE ,FORGETFUL OF TIME.VITAL SIGNS TAKEN. LASIX DRIP 5ML/HR INFUSING TO RIGHT WRIST AREA .UPPER ARMS WITH SMALL SKIN TEAR WHICH ARE WEEPING.BOTH LOWER LEGS 4+SWELLING AND REDNESS DISCOLORATION. ROOM AIR. MILD OBESE.ABDOMEN DISTENDED..DE LEÓN CATHETER DRAINING DARK ARNOLD URINE. INSTRUCTED TO USE CALL ANDERSON FOR ANY NEEDS NOR DISCOMFORTS WHICH IS AT WITHIN REACH. ON AIR LOW MATTRESS FOR SKIN PROBLEM PREVENTION. BED IN LOW POSITION.UNCONTROLLED A FIB. BED IN LOW POSITION FOR SAFETY.
--- NOTE | 2018-08-13 20:30 | NUR ---
CONFUSE: PATIENT YELLING FOR HELP DUE TO ROOM MATE ROOM MATE NOISE. EGG PROCESSING SUPERVISOR SPOKE AND REASSURE PATIENT.
[2018-08-13 20:31] VITALS: BP_SYST 118
--- NOTE | 2018-08-13 21:00 | NUR ---
CONTINUE TO CALL FOR HELP TO CALL HIS . KNOWS PHONE # AND NAME OF ..UPSET.
[2018-08-13] MEDS: DONEPEZIL HCL 5 MG TABLET (ARICEPT) PO SCH (21:30)
--- NOTE | 2018-08-13 21:30 | NUR ---
DUE MEDICINES WERE GIVEN WITH LOTS OF CONVINCING EFFORTS AND REASSURANCES.TOOK WITHOUT PROBLEMS. ASPIRATION PRECAUTIONS OBSERVED.
--- NOTE | 2018-08-13 21:45 | NUR ---
CALLED [facility] #[phone]. REPORTED PATIENT CONFUSION ,WANTING TO GO HOME AND TO TALK TO HIS . REQUESTING TO COME TO STAY WITH PATIENT.. SAID CAN NOT NEED TO REST. PATIENT AND TALKED TO EACH OTHER.
--- NOTE | 2018-08-13 22:00 | NUR ---
DID CALL HIS SON ROBB X2 # [phone]. NO ANSWER LEFT A MESSAGE IN ANSWERING MACHINE TO CALL HOSPITAL.
--- NOTE | 2018-08-13 22:06 | NUR ---
Paged Dr. Hong dialed [phone], s/w Ailyn.
[2018-08-13] MEDS ORDERED: QUEtiapine FUMARATE 25 MG TABLET PO ONE (22:15)
--- NOTE | 2018-08-13 23:00 | NUR ---
BOWEL MOVEMENT: HAS LARGE SOFT BROWNISH STOOL. HYGIENE AND SKIN CARE DONE BY 3 STAFF.
[2018-08-13 23:40] VITALS: BP_SYST 117
--- NOTE | 2018-08-14 02:05 | NUR ---
BOWEL MOVEMENT: HAS LARGE VERY LOOSE LIGHT BROWNISH STOOL. RODOLFO AND SKIN CARE DONE BY 3 STAFF.
--- NOTE | 2018-08-14 02:30 | NUR ---
confusion: PATIENT STILL AWAKE. REMOVING BLANKETS,PULLING SELF UP TO GET OUT OF BED.VERBALIZING NEED TO CALL HIS SON IN [place] DEPART[place].
--- NOTE | 2018-08-14 03:30 | NUR ---
AGITATION: PATIENT CONTINUE GETTING OUT OF BED. AGITATED.CONFUSE.RN STAY WITH PATIENT. FOR SAFETY. LABORER BITUMINOUS PAVING TALKED TO PATIENT WELL. PATIENT YELLED.
[2018-08-14 03:40] VITALS: BP_SYST 109
--- NOTE | 2018-08-14 04:00 | NUR ---
Paged Dr. Hong dialed [phone], s/w Ann Marie.
--- NOTE | 2018-08-14 06:00 | NUR ---
Second call for Dr. Hong dialed [phone], s/w Ann Marie.
[2018-08-14] MEDS: NEOMYCIN SULFATE 500 MG TABLET PO SCH ×4 (06:04→17:22)
[2018-08-14] MEDS: FUROSEMIDE 100 MG in D5W 90 ML IV SCH (06:07)
--- NOTE | 2018-08-14 06:10 | NUR ---
PATIENT MOVED TO HI147A FOR SITTER. REMAINS CONFUSE .CALM.
[2018-08-14 06:48] LABS: EOSINOPHILS # (AUTO) 0.2 K/uL (0.0-0.4); EOSINOPHILS % (AUTO) 5.7 % (0.0-4.0); HEMATOCRIT 31.3 % (36-54); HEMOGLOBIN 10.3 g/dL (14.0-18.0); LYMPHOCYTES # (AUTO) 0.7 K/uL (1.0-5.5); LYMPHOCYTES % (AUTO) 15.8 % (20.5-51.5); MEAN CORPUSCULAR HEMOGLOBIN 35 pg (27-31); MEAN CORPUSCULAR HGB CONC 33 % (32-36); MEAN CORPUSCULAR VOLUME 105 fL (79.0-98.0); MONOCYTES # (AUTO) 0.4 K/uL (0.0-1.0); MONOCYTES % (AUTO) 8.8 % (1.7-9.3); NEUTROPHILS % (AUTO) 68.7 % (40.0-70.0); PLATELET COUNT (AUTO) 71 K/uL (130-430); RED BLOOD CELL COUNT(AUTO) 2.98 MIL/uL (4.2-6.2); WHITE BLOOD COUNT (AUTO) 4.3 K/uL (4.8-10.8)
[2018-08-14 07:07] LABS: ALANINE AMINOTRANSFERASE 19 U/L (12-78); ALBUMIN 2.1 g/dL (3.4-4.8); ANION GAP 2 (5-15); ASPARTATE AMINOTRANSFERASE 39 U/L (10-37); CALCIUM 9.6 mg/dL (8.4-11.0); CHLORIDE 95 mmol/L (98-107); CREATININE 1.53 mg/dL (0.55-1.30); GLUCOSE 82 mg/dL (70-99); POTASSIUM 4.4 mmol/L (3.5-5.1); SODIUM SERUM 128 mmol/L (136-145); TOTAL BILIRUBIN 9.6 mg/dL (0.0-1.0); UREA NITROGEN, BLOOD 36 mg/dL (8-21)
--- NOTE | 2018-08-14 07:20 | NUR ---
REPORT GIVEN TO ALETHA PHELPS.FOR CONTINUITY OF CARE.
--- NOTE | 2018-08-14 07:50 | NUR ---
Nutrition Update Yan Scale 13 noted. Pt admitted for ALOC Diet: mechanical soft diet BMI: 36.3 kg/m2 RD to follow per nutrition care standards.
[2018-08-14 08:00] VITALS: BP_SYST 91
--- NOTE | 2018-08-14 08:00 | NUR ---
RN OPENING NOTE patient is resting on bed, open eyes. denies pain or discomfort, alert oriented x3. confusion comes and goes. . patient was assessed, vital signs are stable. his blood pressure is on the low side, will keep an eye on that.. patient's bed at low positions and call light within reach, bed alarm is on, Dr. henderson the GI came over the just saw the patient. will continue to monitor.
[2018-08-14] MEDS: PANTOPRAZOLE SODIUM 40 MG TAB PO SCH ×2 (08:59→20:35)
[2018-08-14] MEDS: LACTULOSE 20 GM/30 ML UDC PO SCH ×4 (08:59→20:35)
[2018-08-14] MEDS: RIFAXIMIN 550 MG TABLET PO SCH ×2 (08:59→20:35)
[2018-08-14] MEDS: MIDODRINE HCL 5 MG TABLET (PROAMATINE) PO SCH ×3 (08:59→20:35)
[2018-08-14] MEDS: cefTRIAXone 1 GM in D5W 50 ML IV SCH (09:09)
--- NOTE | 2018-08-14 10:00 | NUR ---
RN NOTE PATIENT'S RESTING ON BED , PATIENT DENIES PAIN OR DISCOMFORT. FAMILY MEMBERS BY BEDSIDE, PATIENT WAS GIVEN HIS MEDICATION. AND ASSISTED IN EATING HIS BREAKFAST. PATIENT WAS REPOSITIONED. BEING A SITTER FOR THE PATIENT, WILL CONTINUE TO MONITOR THE PATIENT.
--- NOTE | 2018-08-14 12:00 | NUR ---
RN NOTE patient is resting on bed, alert , open eyes, patient was given his medications. as well as was repositioned, family members and patient was educated about fall prevention and liver cirrhosis. they verbalized understanding, patient was then served his lunch. will continue to monitor. patient is calm, not trying to pull out IV, or get out off bed, will continue to monitor.
[2018-08-14 12:10] VITALS: BP_SYST 124
--- NOTE | 2018-08-14 14:00 | NUR ---
RN NOTE patient resting on bed was repositioned. ultrasound department called. said to keep the patient NPO after lunch till around 1900 to do ultrasound of the abdomen and liver, family members and the patient agreed and verbalized understanding, will continue to monitor.
--- NOTE | 2018-08-14 16:00 | NUR ---
RN Notes patient resting on bed, sleeping, breathing are regular. patient's dressings on the right arm skin tear was cleansed with NS and covered with optifoam. Lasix drip running at 5 ml/hr. still the sitter for the patient. patient denies pain or discomfort. will continue to monitor.
[2018-08-14 16:40] VITALS: BP_SYST 115
[2018-08-14] MEDS: QUEtiapine FUMARATE 25 MG TABLET PO SCH (17:23)
--- NOTE | 2018-08-14 18:00 | NUR ---
RN CLOSING NOTE patient is resting on bed, denies pain or discomfort. patient was repositioned, family talked to Dr. Hong about the plan for palliative care vs hospice for the patient, then family left home. patient dinner came but patient was told he can't eat dinner till after his US of abdomen to be done, US department will be coming on 1900 to do the scanning, will continue to monitor and will endorse to next shift.
--- NOTE | 2018-08-14 19:20 | NUR ---
Opening Notes Received patient in bed resting comfortably. Patient is aaox1. Confused, unaware of current place, time of event. IV on the right wrist 22 gauge infusing Lasix drip at 5ml/hr. Site is clean and intact with covered in gauze dressing. Skin tear noted and visualized on right forearm covered with non adhesive optifoam and gauze dressing. US mechanic sound technician present in room doing Ultrasound on the abdomen. BLE edema noted. Has mary catheter draining by gravity prosper colored urine. No leakage present. Heart sounds wnl. Lungs sounds slightly diminished throughout. On LUIS E matress. fall precautions in place, safety precautions being observed. Call light placed within reach. Sitter at bedside. Patient is cooperative and not pulling out lines or not trying to get out of bed. Will continue to monitor for any change of condition.
[2018-08-14 20:00] VITALS: BP_SYST 115
[2018-08-14] MEDS: DONEPEZIL HCL 5 MG TABLET (ARICEPT) PO SCH (20:35)
--- NOTE | 2018-08-14 21:45 | NUR ---
Veronica called. Patient spoke with wanting to go home. Discussed current plans. No further questions.
--- NOTE | 2018-08-14 22:14 | NUR ---
Patient more awake and cooperative. Ate dinner, approximately 50% of meal. Medications crushed and given with pudding. Very thirsty drinking plenty of water and 6 orange juices containers. IV intact infusing Lasix at 5 ml/hr. Urine output prosper in color.
[2018-08-15] VITALS: BP_SYST 121
[2018-08-15] MEDS: NEOMYCIN SULFATE 500 MG TABLET PO SCH ×4 (00:13→18:25)
--- NOTE | 2018-08-15 00:32 | NUR ---
Patient had large bowel movement. Cleaned and changed linen. Tolerated 0000 medication crushed and given with pudding. Able to drink water with straw. Patient states he is cold. Applied 4 blankets for comfort. Patient is asleep with audible breath sounds. Bed in low position and safety precautions being observed.
--- NOTE | 2018-08-15 02:20 | NUR ---
Patient in bed talking in while sleeping. No appearance of pain or respiratory distress.
--- NOTE | 2018-08-15 04:18 | NUR ---
Patient in bed talking in his sleep. Visualized rise and fall of chest. No pain or respiratory distress noted. Lasix drip infusing at 5ml/hr. call light within reach. Sitter at bedside. Safety precautions in place.
[2018-08-15] MEDS: FUROSEMIDE 100 MG in D5W 90 ML IV SCH ×2 (05:29→22:29)
--- NOTE | 2018-08-15 06:49 | NUR ---
Closing notes Patient in bed asleep. Patient had a large bowel movement. All linen replaced and patient cleaned and dried. Tolerated 0600 medication crushed in apple sauce followed by a cup of water. IV on the right wrist infusing Lasix drip at 5ml/hr. No infiltration at the site, wrapped in gauze. Patient repositioned.Charlton catheter draining prosper color urine by gravity with good output. Safety precautions in place and bed alarm active. All needs have been met and will endorse plan of care to oncoming nurse.
[2018-08-15 07:12] LABS: ANION GAP 6 (5-15); CALCIUM 9.2 mg/dL (8.4-11.0); CHLORIDE 95 mmol/L (98-107); CREATININE 1.68 mg/dL (0.55-1.30); GLUCOSE 86 mg/dL (70-99); POTASSIUM 4.1 mmol/L (3.5-5.1); SODIUM SERUM 130 mmol/L (136-145); UREA NITROGEN, BLOOD 38 mg/dL (8-21)
[2018-08-15 08:00] VITALS: BP_SYST 136
--- NOTE | 2018-08-15 08:10 | NUR ---
Opening note patient received resting in bed eating breakfast at this time, patient is tolerating mechanical soft diet well, patient is A&O x 2, patient denies any pain or distress at this time, Lasix drip is running at 5ml/hr, IV site is clean and intact with no signs of infiltration, assessment completed at this time, mary catheter is draining prosper urine, safety precautions are in place, bed alarm is on, educated patient on plan of care and call light system, call light is within reach.
[2018-08-15] MEDS: LACTULOSE 20 GM/30 ML UDC PO SCH ×4 (09:06→22:26)
[2018-08-15] MEDS: MIDODRINE HCL 5 MG TABLET (PROAMATINE) PO SCH ×3 (09:06→22:26)
[2018-08-15] MEDS: PANTOPRAZOLE SODIUM 40 MG TAB PO SCH ×2 (09:06→22:27)
[2018-08-15] MEDS: RIFAXIMIN 550 MG TABLET PO SCH ×2 (09:06→22:27)
[2018-08-15] MEDS: cefTRIAXone 1 GM in D5W 50 ML IV SCH (09:06)
--- NOTE | 2018-08-15 10:22 | NUR ---
Notes patient is resting in bed at this time, IVF infusing well, no signs of pain or distress is noted at this time, family is at bedside, safety precautions observed, patient assisted to use bedpan, turned and repositioned for comfort, will continue to monitor, bed alarm on, three side rails up, sitter present, call light within reach.
--- NOTE | 2018-08-15 11:01 | NUR ---
Notes patient up with physical therapy at this time, patient was able to sit on the side of the bed and stand for a few seconds, patient tolerated well with no pain or distress.
--- NOTE | 2018-08-15 11:38 | NUR ---
Wound Evaluation: Late note for 1138 secondary to patient care. Wound Consult ordered for Low Yan Score. Patient evaluated for a low Yan score of 14. Patient was awake, alert, oriented x 2, and received in a Michael Bed with an IsoFlex LUIS E mattress. Patient needs to be turned in bed. Skin is fair (-). Recommend encourage and assist patient with repositioning every 2 hours with pillow support. Elevate, off-load and float bilateral heels with pillows. Offload pressure areas with pillows for pressure re-distribution. Perform skin care and monitor skin integrity Q shift. Use moisture barrier cream on moisture susceptible areas QID and PRN for soiling. Maintain patient on a low air-loss mattress. Skin assessment: 1. Right lower extremity: Erythema, 2+ pitting edema, calor, present on admission. No weeping or drainage noted. Skin is intact. 2. Left lower extremity: Erythema, 2+ pitting edema, calor, present on admission. No weeping or drainage noted. Skin is intact. Recommend: No dressings needed. Continue to monitor sites every shift. Elevate bilateral lower extremities. Contact wound care nurse if sites open, drain, or worsen.
[2018-08-15 12:17] VITALS: BP_SYST 128
--- NOTE | 2018-08-15 12:48 | NUR ---
Notes patient resting in bed, patient is awake and talking with family at bedside at this time, patient tolerated lunch well, IV lasix infusing at 5ml/hr, no signs of infiltration at this time, no signs of pain or distress at this time, family is at bedside, sitter at bedside present, will continue to monitor, bed alarm on, three side rails up, call light within reach.
--- NOTE | 2018-08-15 14:09 | NUR ---
Dietitian Recommendations *Recommend Mechanical Soft [facility] Renal Standard w/ Eric BID. Oral supplement will provide additional 160 kcal and 5 gm protein daily. *Encourage pt to increase PO intake. Please see Nutritional Assessment for details. CHARITY CHEN Addendum: 08/15/18 at [address] Wrong note. Note for a different pt. CHARITY CHEN
--- NOTE | 2018-08-15 14:13 | NUR ---
Notes patient is resting in bed, IV lasix is infusing well at 5ml/hr, no distress or pain is noted at this time, family is away speaking to hospital social worker at this time, will continue to monitor, sitter at bedside is present, safety precautions in place, bed alarm on, three side rails up, call light within reach.
--- NOTE | 2018-08-15 14:26 | NUR ---
Social Service Note: DIONICIO spoke with pt's 2 sons and in quiet room regarding hospice evaluation order. DIONICIO explained the hospice services. Pt's family states that they had looked up [facility]. DIONICIO has faxed referral to [facility] (f. [phone] p.[phone]). DIONICIO will follow up with [facility] to see when their nurse will be out to evaluate pt. Addendum: 08/15/18 at 1431 by Magdalena Russell LCSW DIONICIO spoke to December at [facility] who states that they have no liaisons available today for the evaluation. A liaison will contact pt's family to schedule an evaluation for tomorrow, 08/16/18. Addendum: 08/15/18 at 1442 by Magdalena Russell LCSW DIONICIO spoke with pt's family and alerted them that Prue Sanchez will contact them to schedule the evaluation.
--- NOTE | 2018-08-15 14:26 | NUR ---
Dietitian Recommendations *Recommend Mechanical soft Low Fat 2gm Na diet. *Encourage pt to increase PO intake. Please see Nutritional Assessment for details. APRIL, RD
--- NOTE | 2018-08-15 16:35 | NUR ---
Notes patient resting in bed, no signs or distress noted at this time, IV lasix infusing well at 5ml/hr, no signs of infiltration, sitter at bedside is present, safety precautions in place, bed alarm on, three side rails up, will continue to monitor, call light within reach.
[2018-08-15 16:52] VITALS: BP_SYST 126
[2018-08-15] MEDS: QUEtiapine FUMARATE 25 MG TABLET PO SCH (18:25)
--- NOTE | 2018-08-15 18:41 | NUR ---
CLOSING NOTE PATIENT IS RESTING IN BED EATING DINNER AT THIS TIME, PATIENT IS TOLERATING DIET WELL, PATIENT IS ALERT AND ORIENTED TO NAME AND PLACE, IV LASIX INFUSING AT 5ML/HR, NO SIGNS OF INFILTRATION, NO SIGNS OF DISTRESS IS NOTED AT THIS TIME, ALL NEEDS WERE MET THROUGHOUT SHIFT, NO RESPIRATORY DISTRESS NOTED, SAFETY PRECAUTIONS IN PLACE, SITTER AT BEDSIDE IS DISCONTINUED, BED ALARM IS ON, THREE SIDE RAILS UP, ROOM IS CLOSE TO NURSING STATION, CALL LIGHT WITHIN REACH, WILL ENDORSE REPORT TO ONCOMING NURSE.
[2018-08-15 20:25] VITALS: BP_SYST 113
--- NOTE | 2018-08-15 20:25 | NUR ---
RN OPENING NOTE Patient resting in bed, A&O x 1-2 w/ confusion. Bed locked at lowest position, rails up, and call davey within reach. Standard and fall precautions implemented. Patient has Right Wrist 22 G peripheral IV noted, infusing Lasix D5W @ 5 mg/hr, patent and benign. Patient appears jaundiced and has history of liver failure. Charlton catheter noted and draining prosper-colored urine. Patient has several areas of bruising throughout extremities.
[2018-08-15] MEDS: DONEPEZIL HCL 5 MG TABLET (ARICEPT) PO SCH (22:26)
[2018-08-16] VITALS: BP_SYST 108
--- NOTE | 2018-08-16 00:05 | NUR ---
RN ROUNDING Patient sleeping in bed. Patient turned and repositioned Q 2 w/ pillow support for comfort. No acute s/s of distress noted. No c/o pain.
[2018-08-16] MEDS: NEOMYCIN SULFATE 500 MG TABLET PO SCH ×3 (00:40→12:03)
--- NOTE | 2018-08-16 04:05 | NUR ---
RN ROUNDING Patient sleeping in bed. Patient turned and repositioned Q 2 w/ pillow support for comfort. No acute s/s of distress noted. No c/o pain.
[2018-08-16 07:26] LABS: BASOPHILS # (AUTO) 0.1 K/uL (0.0-0.2); BASOPHILS % (AUTO) 1.7 % (0.0-2.0); EOSINOPHILS # (AUTO) 0.2 K/uL (0.0-0.4); EOSINOPHILS % (AUTO) 4.6 % (0.0-4.0); HEMATOCRIT 31.9 % (36-54); HEMOGLOBIN 10.7 g/dL (14.0-18.0); LYMPHOCYTES # (AUTO) 0.9 K/uL (1.0-5.5); LYMPHOCYTES % (AUTO) 18.6 % (20.5-51.5); MEAN CORPUSCULAR HEMOGLOBIN 36 pg (27-31); MEAN CORPUSCULAR HGB CONC 34 % (32-36); MEAN CORPUSCULAR VOLUME 106 fL (79.0-98.0); MONOCYTES # (AUTO) 0.4 K/uL (0.0-1.0); NEUTROPHILS # (AUTO) 3.2 K/uL (1.8-7.7); NEUTROPHILS % (AUTO) 66.1 % (40.0-70.0); PLATELET COUNT (AUTO) 81 K/uL (130-430); RED BLOOD CELL COUNT(AUTO) 3.01 MIL/uL (4.2-6.2); RED CELL DISTRIBUTION WIDTH 16.3 % (9.0-15.0); WHITE BLOOD COUNT (AUTO) 4.8 K/uL (4.8-10.8)
[2018-08-16 07:28] LABS: ALANINE AMINOTRANSFERASE 22 U/L (12-78); ALBUMIN 1.8 g/dL (3.4-4.8); ANION GAP 5 (5-15); ASPARTATE AMINOTRANSFERASE 43 U/L (10-37); CALCIUM 9.3 mg/dL (8.4-11.0); CHLORIDE 96 mmol/L (98-107); CREATININE 1.47 mg/dL (0.55-1.30); GLUCOSE 99 mg/dL (70-99); POTASSIUM 3.9 mmol/L (3.5-5.1); SODIUM SERUM 132 mmol/L (136-145); UREA NITROGEN, BLOOD 33 mg/dL (8-21)
--- NOTE | 2018-08-16 07:35 | NUR ---
RN CLOSING NOTE Report given to MATTIE Melendez. Patient resting in bed, A&O x 2-3 w/ confusion and forgetfulness. Bed locked at lowest position, rails up, and call davey within reach. Standard and fall precautions implemented. Patient has Right Wrist 22 G peripheral IV noted, infusing Lasix D5W @ 5 ml/hr, patent and benign. Patient appears jaundiced and has history of liver failure. Charlton catheter noted and draining prosper-colored urine. Patient has several areas of bruising throughout extremities. Dr. Velez seen patient.
[2018-08-16 08:06] VITALS: BP_SYST 106
--- NOTE | 2018-08-16 08:09 | NUR ---
OPENING NOTE: MORNING REPORT WAS TAKEN FROM AGRONOMY SUPERVISOR NURSE. PATIENT IS ALERT AND ORIENTED TO NAME, BIRTHDAY, PLACE, AND DATE. PATIENT NOT COMPLAINING OF SHORTNESS OF BREATH. PATIENT ON ROOM AIR. PATIENT NOT COMPLAINING OF PAIN OR NAUSEA AND VOMITING. PATIENT'S EYES JAUNDICE. DE LEÓN HANGING TO GRAVITY. IV PATENT WITH NO SIGNS OF INFILTRATION. BED IN LOWEST POSITION WITH CALL LIGHT IN REACH. SIDE RAILS ARE UP AND BED ALARM IS ON. WILL CONTINUE TO MONITOR.
[2018-08-16] MEDS: LACTULOSE 20 GM/30 ML UDC PO SCH (09:19)
[2018-08-16] MEDS: cefTRIAXone 1 GM in D5W 50 ML IV SCH (09:19)
[2018-08-16] MEDS: PANTOPRAZOLE SODIUM 40 MG TAB PO SCH (09:20)
[2018-08-16] MEDS: MIDODRINE HCL 5 MG TABLET (PROAMATINE) PO SCH (09:20)
[2018-08-16] MEDS: RIFAXIMIN 550 MG TABLET PO SCH (09:20)
--- NOTE | 2018-08-16 09:25 | NUR ---
NOTE: GAVE PATIENT MORNING MEDICATIONS. PATIENT SWALLOWED WELL. PATIENT SITTING IN BED. AT BEDSIDE. PATIENT HAS NO FURTHER REQUESTS. WILL CONTINUE TO MONITOR.
--- NOTE | 2018-08-16 11:20 | NUR ---
NOTE: PATIENT GETTING UP WITH PHYSICAL THERAPY RIGHT NOW. WILL CONTINUE TO MONITOR.
--- NOTE | 2018-08-16 12:13 | NUR ---
Social Service Note: ELECTRONICS ENGINEERING TECHNOLOGIST met with pt's son and in [facility]; pt's family asking about hospice evaluation. ELECTRONICS ENGINEERING TECHNOLOGIST placed call to Patsy at [facility] ([phone]) who states that a metals sales representative will be out today to meet with family. ELECTRONICS ENGINEERING TECHNOLOGIST will remain available for support.
[2018-08-16 12:41] VITALS: BP_SYST 116
--- NOTE | 2018-08-16 12:51 | NUR ---
MD: SPOKE TO HOSPICE NURSE FROM [facility]. FAMILY AGREED FOR HOSPICE. PAGED DR ARZATE FOR DC ORDER.
[2018-08-16 13:35] VITALS: BP_SYST 116
[2018-08-16] MEDS ORDERED: MORPHINE 4 MG/ML INJ. SYRINGE IVP ONE (13:45)
[2018-08-16] MEDS ORDERED: MORPHINE 2 MG/ML INJ. SYRINGE ONE (13:50)
--- NOTE | 2018-08-16 14:00 | NUR ---
D/C Patient Exit Care provided. Family being transferred to [facility]. Hospice nurse at nursing station. Report given to nurse. Patient verbalized understanding. MD discussed with patient the results and treatment provided. Patient in stable condition for transfer. Patient given morphine prior to transfer. All belongings sent with patient. Patient wheeled out at 1400 by ambulance and family to follow.
== END 2018-08-16 14:00 | disposition hospice, inpatient (51) | DRG 441 ==
LOC: SED 09:30 → STU 11:31
PROVIDERS: ADMIT Internal Medicine; ATTEND Internal Medicine
DX: K72.90 Hepatic failure, unspecified without coma (principal); E43 Unspecified severe protein-calorie malnutrition; R18.8 Other ascites; E87.1 Hypo-osmolality and hyponatremia; K74.60 Unspecified cirrhosis of liver; E66.9 Obesity, unspecified; N18.9 Chronic kidney disease, unspecified; E87.5 Hyperkalemia; K75.81 Nonalcoholic steatohepatitis (NASH); I25.10 Atherosclerotic heart disease of native coronary artery without angina pectoris; I51.7 Cardiomegaly; D63.8 Anemia in other chronic diseases classified elsewhere; F03.90 Unspecified dementia, unspecified severity, without behavioral disturbance, psychotic disturbance, mood disturbance, and anxiety; I95.1 Orthostatic hypotension; D69.6 Thrombocytopenia, unspecified; Z66 Do not resuscitate; E11.22 Type 2 diabetes mellitus with diabetic chronic kidney disease; R26.81 Unsteadiness on feet; Z68.36 Body mass index [BMI] 36.0-36.9, adult; Z79.899 Other long term (current) drug therapy; Z90.49 Acquired absence of other specified parts of digestive tract
CPT/HCPCS: 36415; 71045; 76700-TC; 76705; 80048; 80053; 81000-TC; 82140-TC; 83735-TC; 84100-TC; 85025; 85610-TC; 85730-TC; 87081; 96374; 97110-GP; 97116-GP; 97530-GP; 99285; J0696; J1940; J1956; J2270; J7060; P9046